=== PATIENT | male | born 1990 ===

== ENCOUNTER 2022-04-16 22:26 | Outpatient (CLI) | payer SELFPAY | END 2022-04-16 22:27 | disposition left against medical advice (07) | LOC: EMS 22:26 | DX: R56.9 Unspecified convulsions (principal) ==

== ENCOUNTER 2022-05-02 18:32 | Outpatient (CLI) | payer SELFPAY | END 2022-05-02 18:33 | disposition EMS.NT | LOC: EMS 18:32 | DX: R56.9 Unspecified convulsions (principal) ==